=== PATIENT | male | born 1980 | race American Indian/Alaskan Native ===

== ENCOUNTER 2019-03-21 08:27 | Emergency (ER) | payer OTHER ==
[2019-03-21 08:34] VITALS: BP 137/79
[2019-03-21] MEDS ORDERED: predniSONE 20 MG TAB PO ONE (10:45)
--- NOTE | 2019-03-21 10:46 | Emergency Department Report ---
ED Back Pain/Injury HPI - General Chief Complaint: Back Pain/Injury Stated Complaint: LOWER BACK PAIN Time Seen by Provider: 03/21/19 10:03 Source: patient Limitations: No Limitations - History of Present Illness Initial Comments: This is a 38-year-old male who presents to ED complaining of lower back pain after moving a washing machine last night. Patient states that he accidentally restand his back while trying to move a washing machine. Patient states that pain is worsened with movement or walking. Patient is worsened headaches and was not able to go to work today sitting came in to be evaluated. MD Complaint: back pain, back injury Similar Symptoms Previously: No Place: home Radiation: none Severity: moderate Severity scale (0 -10): 9 Quality: aching Worsens With: movement, sitting upright, walking Context: while lifting, bending Associated Symptoms: denies: confusion, weakness, chest pain, difficulty walking, incontinence - Related Data Previous Rx's Medication Instructions Recorded Last Taken Type Tizanidine HCl [Zanaflex 2mg CAP] 2 mg PO TID #20 capsule 03/21/19 Unknown Rx Allergies Allergy/AdvReac Type Severity Reaction Status Date / Time No Known Allergies Allergy Unverified 03/21/19 08:31 ED Review of Systems ROS: Stated complaint: LOWER BACK PAIN Other details as noted in HPI Comment: All other systems reviewed and negative ED Back Pain Physical Exam - Exam General: Vital signs noted. No distress. Alert and acting appropriately. Tender to palpation of the left some posttussive muscles of the lower back. No spinal tenderness. Back/Abdomen: Yes Straight Leg Raise Pain, No Abdominal Tenderness, No Perithoracic Tenderness, No Perilumbar Tenderness, No Sacroiliac Tenderness, No Flank Tenderness Neuro: Yes Normal Sensation, Yes Normal DTR's, Yes Normal Gait, No Motor Weakness ED Course Vital Signs 03/21/19 08:33 Pulse Rate 72 Respiratory 20 Rate Blood Pressure 137/79 O2 Sat by Pulse 99 Oximetry ED Medical Decision Making - Medical Decision Making 38-year-old male presents to ED with myalgia is status post low back injury while lifting ED course: Vital signs are normal patient is in no acute distress Discussed with patient follow-up with primary care physician. Discussed the patient and take medications as prescribed. Patient has no neurological deficit. Patient is alert and oriented 3 and understands all instructions given. Discussed drowsiness effect of Flexeril makes her drowsy and not to operate machinery while taking flexeril Critical care attestation.: If time is entered above; I have spent that time in minutes in the direct care of this critically ill patient, excluding procedure time. ED Disposition Clinical Impression: Acute back pain with radiculopathy, Injury of muscle of lower back Disposition: DC- TO HOME OR SELFCARE Is pt being admited?: No Does the pt Need Aspirin: No Condition: Stable Instructions: Muscle Strain (ED) Additional Instructions: Make sure to follow up with the primary care physician as discussed. Take all your medications as you've been prescribed. If you have any worsening symptoms or develop new symptoms please return to ED immediately. Prescriptions: Tizanidine HCl [Zanaflex 2mg CAP] 2 mg PO TID #20 capsule Referrals: PRIMARY CARE, [Primary Care Provider] - 3-5 Days [facility] [Outside] - 3-5 Days [facility] [Outside] - 3-5 Days [facility] [Outside] - 3-5 Days Time of Disposition: 11:23
== END 2019-03-21 11:48 | disposition home or self-care (01) ==
LOC: ED 08:27
DX: S39.002A Unspecified injury of muscle, fascia and tendon of lower back, initial encounter (principal); M54.16 Radiculopathy, lumbar region; Z79.899 Other long term (current) drug therapy; X50.0XXA Overexertion from strenuous movement or load, initial encounter; Y93.89 Activity, other specified; Y92.89 Other specified places as the place of occurrence of the external cause; Y99.8 Other external cause status
CPT/HCPCS: 99282; J7512

== ENCOUNTER 2019-04-11 06:27 | Emergency (ER) | payer OTHER ==
[2019-04-11 07:16] VITALS: BP 134/87
== END 2019-04-11 10:38 | disposition left against medical advice (07) ==
LOC: ED 06:27
DX: M54.9 Dorsalgia, unspecified (principal); Z53.21 Procedure and treatment not carried out due to patient leaving prior to being seen by health care provider

== ENCOUNTER 2020-08-01 08:36 | Emergency (ER) | payer OTHER ==
[2020-08-01 08:45] VITALS: BP 137/87
== END 2020-08-01 09:50 | disposition home or self-care (01) ==
LOC: ED 08:36
DX: M54.41 Lumbago with sciatica, right side (principal); G89.29 Other chronic pain; F17.200 Nicotine dependence, unspecified, uncomplicated; Z86.69 Personal history of other diseases of the nervous system and sense organs; Z72.89 Other problems related to lifestyle; Z79.899 Other long term (current) drug therapy
CPT/HCPCS: 96372; 99281; J1040; J1885